=== PATIENT | male | born 1995 | race Two or more races ===

== ENCOUNTER 2023-02-07 09:27 | Emergency (ER) | payer MEDICAID ==
[~2023-02-07] VITALS: Ht 167.6 cm; Wt 60.3 kg
[2023-02-07 10:47] VITALS: BP 136/80; PULSE 70; RESP 16; TEMP 99.6; O2SAT 99
[2023-02-07] MEDS ORDERED: LIDOCAINE 1% HCL (LOCAL ANESTH.) INJ 20ML MDV ID ONE (12:00)
[2023-02-07] MEDS ORDERED: CEPH500T PO (12:09)
== END 2023-02-07 12:29 | disposition home or self-care (01) ==
LOC: ER 09:27
DX: S60.456A Superficial foreign body of right little finger, initial encounter (principal); Z79.899 Other long term (current) drug therapy; W26.8XXA Contact with other sharp object(s), not elsewhere classified, initial encounter; Y93.89 Activity, other specified; Y92.89 Other specified places as the place of occurrence of the external cause; Y99.8 Other external cause status
CPT/HCPCS: 99284; J2001